=== PATIENT | male | born 1985 | race Caucasian/White ===

== ENCOUNTER 2018-09-06 14:48 | Emergency (ER) | payer BC ==
[2018-09-06] MEDS ORDERED: Adacel (T-DAP) 0.5 ML SYRINGE ONE (15:14)
== END 2018-09-06 15:22 | disposition home or self-care (01) ==
LOC: BURERS 14:48
DX: S81.851A Open bite, right lower leg, initial encounter (principal); Z87.891 Personal history of nicotine dependence; W54.0XXA Bitten by dog, initial encounter
CPT/HCPCS: 90715; 99283

== ENCOUNTER 2022-03-30 11:16 | Emergency (ER) | payer BC ==
[2022-03-30] MEDS ORDERED: Dexamethasone 4 mg/ml Vial ONE (12:24)
== END 2022-03-30 12:32 | disposition home or self-care (01) ==
LOC: BURERS 11:16
DX: J06.9 Acute upper respiratory infection, unspecified (principal); Z20.822 Contact with and (suspected) exposure to COVID-19
CPT/HCPCS: 87804; 99283; J1100; U0003; U0005

== ENCOUNTER 2022-04-29 09:22 | Emergency (ER) | payer BC | END 2022-04-29 10:58 | disposition home or self-care (01) | LOC: BURERS 09:22 | DX: S53.401A Unspecified sprain of right elbow, initial encounter (principal); X58.XXXA Exposure to other specified factors, initial encounter | CPT/HCPCS: 99283 ==

== ENCOUNTER 2023-05-19 10:46 | Emergency (ER) | payer BC, OTHER ==
[2023-05-19] MEDS ORDERED: Boostrix 0.5 ML (Tdap) VIAL (>/=7 yrs of age) ONE (12:00)
== END 2023-05-19 12:06 | disposition home or self-care (01) ==
LOC: BURERS 10:46
DX: S81.851A Open bite, right lower leg, initial encounter (principal); Z23 Encounter for immunization; W54.0XXA Bitten by dog, initial encounter
CPT/HCPCS: 90471; 90715